=== PATIENT | male | born 1995 | race Hispanic/Latino ===

== ENCOUNTER 2016-03-18 10:59 | Emergency (ER) | payer OTHER ==
[2016-03-18] MEDS ORDERED: CLINDAMYCIN INJ 900MG/6ML VIAL As Ordered ONE (13:16)
[2016-03-18] MEDS ORDERED: LIDOCAINE 2% MDV 20 ML VIAL As Ordered ONE (13:17)
[2016-03-18 13:39] LABS: BASO # 0.2 K/mm3 (0.0-0.2); BASO % 1.4 % (0.0-1.0); EOS # 0.1 K/mm3 (0.0-0.50); EOS % 0.8 % (0.0-3.0); LARGE UNSTAINED CELL # 0.2 K/mm3 (0.0-0.4); LARGE UNSTAINED CELL % 1.4 % (0.0-4.0); LYMPH # 2.3 K/mm3 (1.5-6.5); MEAN CORPUSCULAR HEMOGLOBIN 26.2 pg (27.0-33.0); MEAN CORPUSCULAR HGB CONC 33.7 g/dl (32.0-36.5); MEAN CORPUSCULAR VOLUME 77.8 fl (80.0-96.0); MONO # 0.5 K/mm3 (0.0-0.8); NEUTROPHILS # 9.4 K/mm3 (1.8-7.7); NEUTROPHILS % 75.4 % (36.0-66.0); PLATELET COUNT, AUTOMATED 263 k/mm3 (150-450); RED CELL DISTRIBUTION WIDTH 13.7 % (11.5-14.5); WHITE BLOOD COUNT 12.4 K/mm3 (4.0-10.0)
[2016-03-18 13:42] LABS: ANION GAP 7 MEQ/L (8-16); BLOOD UREA NITROGEN 11 MG/DL (7-18); CALCIUM LEVEL 9.3 MG/DL (8.5-10.1); CARBON DIOXIDE LEVEL 30 MEQ/L (21-32); CHLORIDE LEVEL 101 MEQ/L (98-107); GLOMERULAR FILTRATION RATE > 60.0 (>60); GLUCOSE, FASTING 85 MG/DL (70-105); POTASSIUM SERUM 4.1 MEQ/L (3.5-5.1); SODIUM LEVEL 138 MEQ/L (136-145)
--- NOTE | 2016-03-18 15:27 | EDDOCDS ---
Physician Documentation [facility] Name: Erasto Birch Age: 20 yrs Sex: Male : 1995 Arrival Date: 03/18/2016 Time: 10:59 Bed I4 / M4 Private [facility] Disposition: 03/18/16 15:15 Discharged to Home/Self Care. Impression: Cutaneous abscess of right upper limb, Cellulitis of right upper limb. - Condition is Stable. - Discharge Instructions: Abscess, Cellulitis, Incision and Drainage. - Prescriptions for Clindamycin HCl 300 mg Oral Capsule - take 1 capsule by ORAL route every 6 hours; 40 capsule. - Medication Reconciliation, Local Pharmacy Hours form. - [facility]: [facility] [place]; When: Tomorrow; Reason: Recheck today's complaints, Continuance of care. - Problem is new. - Symptoms have improved. Historical: - Allergies: no known allergies; - Home Meds: 1. none - PMHx: none; - PSHx: none; - Immunization history:: Last tetanus immunization: up to date. - Family history: Not pertinent. - Social history: Smoking status: Patient/guardian denies using No barriers to communication noted, The patient speaks fluent Cameroonian. - : The pt / caregiver states he / she is not on anticoagulants. Home medication list is obtained from the patient. - Exposure Risk Screening:: None identified. Vital Signs: 03/18 11:01 BP 115 / 70; Pulse 84; Resp 18 S; Temp 98.0(O); Pulse Ox 98% on R/A; Weight 61.23 kg / dd6 134.99 lbs (R); Height 5 ft. 6 in. (167.64 cm) (R); 15:23 BP 114 / 68; Pulse 73; Resp 16; Temp 97.8(O); Pulse Ox 98% on R/A; Pain 1/10; kr3 11:01 Body Mass Index 21.79 (61.23 kg, 167.64 cm) dd6 MDM: 12:51 IV Saline Lock ordered. mo1 12:51 -Blood Culture (Adults Only), peripheral from different site, or from device/port/PICC mo1 etc. if present ordered. 12:51 Lidocaine 20 mg/mL (2 %) 10 ml Infiltration once; to bedside ordered. mo1 12:51 Dressing ordered. mo1 12:51 CBC with Diff Ordered. EDMS 12:51 BMP Ordered. EDMS 12:51 CRP Ordered. EDMS 12:51 -Blood Culture Ordered. EDMS 12:51 Wound Culture & GS - Most Extremities Ordered. EDMS 12:52 Clindamycin 900 mg IVPB once over 30 mins; dilute in 50mL of NS or D5W ordered. mo1 12:57 BLOOD CULTURES Ordered. EDMS 13:10 -Blood Culture (Adults Only), peripheral from different site, or from device/port/PICC ar3 etc. if present complete. 14:31 CRP Reviewed. mo1 14:31 BMP Reviewed. mo1 14:32 CBC with Diff Reviewed. mo1 Administered Medications: 13:24 Drug: Clindamycin 900 mg Route: IVPB; Infused Over: 30 mins; Site: left antecubital; jmk 14:21 Follow up: IV Status: Completed infusion jmk 15:19 Drug: Lidocaine 10 ml [lidocaine 20 mg/mL (2 %) injection solution (10 mL)] {Note: by lizzie LIN.} Route: Infiltration; Signatures: Dispatcher [employer] EDLti Simons RN RN jmk Scott, Debra, RN RN dls Robie, Kathleen, RN RN kr3 Rabon, Alicia, PHYLLIS MASONRY INSTALLER chad3 Mauro Fernandez PA PA mo1 MTDD
--- NOTE | 2016-03-18 15:27 | EDDOCDS ---
Nurse's Notes [facility] Name: Erasto Birch Age: 20 yrs Sex: Male : 1995 Arrival Date: 03/18/2016 Time: 10:59 Bed I4 / M4 [facility] Diagnosis: Cutaneous abscess of right upper limb;Cellulitis of right upper limb Presentation: 03/18 11:07 Presenting complaint: Patient states: Pt presents with redness swelling and yellow dls drainage right forearm pt is unsure if he got bit by something. Compartment Syndrome Evaluation: No compartment is involved. There are no signs of compartment syndrome. Adult Sepsis Screening: The patient does not have new or worsening altered mentation. Patient's respiratory rate is less than 22. Systolic blood pressure is greater than 100. Patient has a qSOFA score of 0- Negative Sepsis Screen. Suicide/Homicide risk assessment- the patient denies having any suicidal and/or homicidal ideations and does not present with any other emotional, behavioral or mental health complaints. 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 Transition of care: patient was not received from another setting of care. 11:07 Acuity: MARIN Level 3 dls 11:07 Method Of Arrival: Walkin/Carried/Asstd dls Triage Assessment: 11:09 General: Appears in no apparent distress, slender, well developed, well nourished, well dls groomed, Behavior is cooperative. Pain: Pain currently is 4 out of 10 on a pain scale. HIV screening NA for this visit Offered previously. 15:25 Bite Description: Bite sustained to dorsal aspect of right forearm by an unknown kr3 animal, Animal Information: Vaccine status: is not applicable. Historical: - Allergies: no known allergies; - Home Meds: 1. none - PMHx: none; - PSHx: none; - Immunization history:: Last tetanus immunization: up to date. - Family history: Not pertinent. - Social history: Smoking status: Patient/guardian denies using No barriers to communication noted, The patient speaks fluent Georgian. - : The pt / caregiver states he / she is not on anticoagulants. Home medication list is obtained from the patient. - Exposure Risk Screening:: None identified. Screenin:25 Screening information is obtained from the patient. Fall risk: No risks identified. dukek Assistance ADL's: requires no assistance with activities of daily living. Abuse/DV Screen: The patient / caregiver reports he/she is: not in a situation that causes fear, pain or injury. Nutritional screening: No deficits noted. Advance Directives: Currently, there is no health care proxy. There is no active DNR order. There is no living will. There is no Power of Leather Staker. Advance directive information has not previously been placed in an [facility] medical record. home support is adequate. Assessment: 13:25 General: Appears in no apparent distress, NAD very casual presentation. right arm with jmk 4" area of redness distal to antecubital space. pea size area of crusty drainage. red streak x 2 extends to axillae.. Derm: Skin see note. 15:24 Reassessment: Patient appears in no apparent distress at this time. Pain: Location: kr3 right forearm Pain currently is 1 out of 10 on a pain scale. Neurological: Level of Consciousness is awake, alert. Respiratory: Respiratory effort is even, unlabored. Vital Signs: 11:01 BP 115 / 70; Pulse 84; Resp 18 S; Temp 98.0(O); Pulse Ox 98% on R/A; Weight 61.23 kg dd6 (R); Height 5 ft. 6 in. (167.64 cm) (R); 15:23 BP 114 / 68; Pulse 73; Resp 16; Temp 97.8(O); Pulse Ox 98% on R/A; Pain 1/10; kr3 11:01 Body Mass Index 21.79 (61.23 kg, 167.64 cm) dd6 Vitals: 11:01 Log In Time: March 18, 2016 at 11:00. dd6 ED Course: 11:00 Patient visited by Darrion Kruse PCA. dd6 11:00 Patient moved to Waiting dd6 11:01 [facility], Hussein Bourgeois is Private Physician. dd6 11:02 Patient moved to Pre RCE dd6 11:08 Triage Initiated dls 12:22 Patient moved to Triage 2 ar3 12:30 Mauro Fernandez PA is PHCP. mo1 12:30 Yoni Saunders MD is Attending Physician. mo1 12:51 Patient visited by Mauro Fernandez PA. mo1 12:52 Patient moved to I4 / M4 ar3 12:52 Wound Culture & GS - Most Extremities Sent. ar3 13:25 The patient / caregiver is instructed regarding the plan of care and ED course. jmk 13:25 Inserted saline lock: 20 gauge in left antecubital area. jmk 13:31 Patient visited by Lit Guerra,NILES. jmk 15:15 [facility], Hussein Bourgeois is Referral Physician. mo1 15:25 Discontinued lock intact, bleeding controlled, pressure dressing applied, No kr3 redness/swelling at site. No procedures done that require assistance. Administered Medications: 13:24 Drug: Clindamycin 900 mg Route: IVPB; Infused Over: 30 mins; Site: left antecubital; jmk 14:21 Follow up: IV Status: Completed infusion jmk 15:19 Drug: Lidocaine 10 ml [lidocaine 20 mg/mL (2 %) injection solution (10 mL)] {Note: by lizzie WELLS} Route: Infiltration; Order Results: Lab Order: CBC with Diff; SPEC'M 03/18/16 13:10 Test: WHITE BLOOD COUNT; Value: 12.4; Range: 4.0-10.0; Abnormal: Above high normal; Units: K/mm3; Status: F Test: RED BLOOD COUNT; Value: 5.94; Range: 4.30-6.10; Units: M/mm3; Status: F Test: HEMOGLOBIN; Value: 15.6; Range: 14.0-18.0; Units: g/dl; Status: F Test: HEMATOCRIT; Value: 46.2; Range: 42.0-52.0; Units: %; Status: F Test: MEAN CORPUSCULAR VOLUME; Value: 77.8; Range: 80.0-96.0; Abnormal: Below low normal; Units: fl; Status: F Test: MEAN CORPUSCULAR HEMOGLOBIN; Value: 26.2; Range: 27.0-33.0; Abnormal: Below low normal; Units: pg; Status: F Test: MEAN CORPUSCULAR HGB CONC; Value: 33.7; Range: 32.0-36.5; Units: g/dl; Status: F Test: RED CELL DISTRIBUTION WIDTH; Value: 13.7; Range: 11.5-14.5; Units: %; Status: F Test: PLATELET COUNT, AUTOMATED; Value: 263; Range: 150-450; Units: k/mm3; Status: F Test: NEUTROPHILS %; Value: 75.4; Range: 36.0-66.0; Abnormal: Above high normal; Units: %; Status: F Test: LYMPH %; Value: 17.0; Range: 24.0-44.0; Abnormal: Below low normal; Units: %; Status: F Test: MONO %; Value: 4.0; Range: 0.0-5.0; Units: %; Status: F Test: EOS %; Value: 0.8; Range: 0.0-3.0; Units: %; Status: F Test: BASO %; Value: 1.4; Range: 0.0-1.0; Abnormal: Above high normal; Units: %; Status: F Test: LARGE UNSTAINED CELL %; Value: 1.4; Range: 0.0-4.0; Units: %; Status: F Test: NEUTROPHILS #; Value: 9.4; Range: 1.8-7.7; Abnormal: Above high normal; Units: K/mm3; Status: F Test: LYMPH #; Value: 2.3; Range: 1.5-6.5; Units: K/mm3; Status: F Test: MONO #; Value: 0.5; Range: 0.0-0.8; Units: K/mm3; Status: F Test: EOS #; Value: 0.1; Range: 0.0-0.50; Units: K/mm3; Status: F Test: BASO #; Value: 0.2; Range: 0.0-0.2; Units: K/mm3; Status: F Test: LARGE UNSTAINED CELL #; Value: 0.2; Range: 0.0-0.4; Units: K/mm3; Status: F Lab Order: [facility]; SPEC'M 03/18/16 13:10 Test: GLUCOSE, FASTING; Value: 85; Range: 70-105; Units: MG/DL; Status: F Test: BLOOD UREA NITROGEN; Value: 11; Range: 7-18; Units: MG/DL; Status: F Test: CREATININE FOR GFR; Value: 0.90; Range: 0.70-1.30; Units: MG/DL; Status: F Test: GLOMERULAR FILTRATION RATE; Value: > 60.0; Range: >60; Status: F Test: SODIUM LEVEL; Value: 138; Range: 136-145; Units: MEQ/L; Status: F Test: POTASSIUM SERUM; Value: 4.1; Range: 3.5-5.1; Units: MEQ/L; Status: F Test: CHLORIDE LEVEL; Value: 101; Range: 98-107; Units: MEQ/L; Status: F Test: CARBON DIOXIDE LEVEL; Value: 30; Range: 21-32; Units: MEQ/L; Status: F Test: ANION GAP; Value: 7; Range: 8-16; Abnormal: Below low normal; Units: MEQ/L; Status: F Test: CALCIUM LEVEL; Value: 9.3; Range: 8.5-10.1; Units: MG/DL; Status: F Test Note: ; Units are mL/min/1.73 m2 Chronic Kidney Disease Staging per NKF: Stage I & II GFR >=60 Normal to Mildly Decreased Stage III GFR 30-59 Moderately Decreased Stage IV GFR 15-29 Severely Decreased Stage V GFR <15 Very Little GFR Left ESRD GFR <15 on TOWN CLERK Lab Order: CRP; SPEC'M 03/18/16 13:10 Test: C REACTIVE PROTEIN QUANTITATIV; Value: 0.49; Range: 0.00-0.30; Abnormal: Above high normal; Units: MG/DL; Status: F Lab Order: Wound Culture & GS - Most Extremities; SPEC'M 03/18/16 13:10 Test: GRAM STAIN; Value: GRAM STAIN RESULT; Status: F Test: GRAM STAIN; Value: NO CELLS SEEN; Status: F Test: GRAM STAIN; Value: NO ORGANISMS SEEN; Status: F Outcome: 15:15 Discharge ordered by Provider. mo1 15:24 Discharge Assessment: patient administered narcotics - no. The following High Risk kr3 Discharge criteria are identified: None. Discharged to home ambulatory, with friend. Condition: stable. Discharge instructions given to patient, Instructed on discharge instructions, follow up and referral plans. medication usage, wound care, Demonstrated understanding of instructions, medications, Pt was receptive of discharge instructions/ teaching. Prescriptions given X 1. No special radiology studies were completed. Property sent home with patient. 15:26 Patient left the ED. kr3 Signatures: Lit GuerraRN RN Deb Joyner RN RN Alta FossRN RN kr3 Darrion Kruse, BEDSPREAD CUTTER BEDSPREAD CUTTER dd6 Meka Ambriz, BEDSPREAD CUTTER BEDSPREAD CUTTER ar3 Mauro Fernandez, RILEY LIN mo1 MTDD
--- NOTE | 2016-03-20 16:27 | EDDOCDS ---
Physician Documentation [facility] Name: Erasto Birch Age: 20 yrs Sex: Male : 1995 Arrival Date: 03/18/2016 Time: 10:59 Bed I4 / M4 [facility] Disposition: 03/18/16 15:15 Discharged to Home/Self Care. Impression: Cutaneous abscess of right upper limb, Cellulitis of right upper limb. - Condition is Stable. - Discharge Instructions: Abscess, Cellulitis, Incision and Drainage. - Prescriptions for Clindamycin HCl 300 mg Oral Capsule - take 1 capsule by ORAL route every 6 hours; 40 capsule. - Medication Reconciliation, Local Pharmacy Hours form. - Follow up: [facility] [place]; When: Tomorrow; Reason: Recheck today's complaints, Continuance of care. - Problem is new. - Symptoms have improved. Historical: - Allergies: no known allergies; - Home Meds: 1. none - PMHx: none; - PSHx: none; - Immunization history:: Last tetanus immunization: up to date. - Family history: Not pertinent. - Social history: Smoking status: Patient/guardian denies using No barriers to communication noted, The patient speaks fluent Danish. - : The pt / caregiver states he / she is not on anticoagulants. Home medication list is obtained from the patient. - Exposure Risk Screening:: None identified. Vital Signs: 03/18 11:01 BP 115 / 70; Pulse 84; Resp 18 S; Temp 98.0(O); Pulse Ox 98% on R/A; Weight 61.23 kg / dd6 134.99 lbs (R); Height 5 ft. 6 in. (167.64 cm) (R); 15:23 BP 114 / 68; Pulse 73; Resp 16; Temp 97.8(O); Pulse Ox 98% on R/A; Pain 1/10; kr3 11:01 Body Mass Index 21.79 (61.23 kg, 167.64 cm) dd6 MDM: 12:51 IV Saline Lock ordered. mo1 12:51 -Blood Culture (Adults Only), peripheral from different site, or from device/port/PICC mo1 etc. if present ordered. 12:51 Lidocaine 20 mg/mL (2 %) 10 ml Infiltration once; to bedside ordered. mo1 12:51 Dressing ordered. mo1 12:51 CBC with Diff Ordered. EDMS 12:51 BMP Ordered. EDMS 12:51 CRP Ordered. EDMS 12:51 -Blood Culture Ordered. EDMS 12:51 Wound Culture & GS - Most Extremities Ordered. EDMS 12:52 Clindamycin 900 mg IVPB once over 30 mins; dilute in 50mL of NS or D5W ordered. mo1 12:57 BLOOD CULTURES Ordered. EDMS 13:10 -Blood Culture (Adults Only), peripheral from different site, or from device/port/PICC ar3 etc. if present complete. 14:31 CRP Reviewed. mo1 14:31 BMP Reviewed. mo1 14:32 CBC with Diff Reviewed. mo1 22:10 T-Sheet-- Draft Copy was scanned into [employer] and attached to record. klr Administered Medications: 13:24 Drug: Clindamycin 900 mg Route: IVPB; Infused Over: 30 mins; Site: left antecubital; jmk 14:21 Follow up: IV Status: Completed infusion k 15:19 Drug: Lidocaine 10 ml [lidocaine 20 mg/mL (2 %) injection solution (10 mL)] {Note: by lizzie LIN.} Route: Infiltration; Signatures: Dispatcher [employer]Host EDLit Simons RN RN jmk Scott, Debra, RN RN dls Robie, Kathleen, RN RN kr3 Rabon, Alicia, SERVICE ORDER DISPATCHER CHIEF SERVICE ORDER DISPATCHER CHIEF ar3 Mauro Fernandez PA PA moAngie Paris kljewels The chart was reviewed and I authenticate all verbal orders and agree with the evaluation and treatment provided.Attachments: 22:10 T-Sheet-- Draft Copy klr Chart Complete MTDD
--- NOTE | 2016-03-20 16:27 | EDDOCDS ---
Physician Documentation [facility] Name: Erasto Birch Age: 20 yrs Sex: Male : 1995 Arrival Date: 03/18/2016 Time: 10:59 Bed I4 / M4 [facility] Disposition: 03/18/16 15:15 Discharged to Home/Self Care. Impression: Cutaneous abscess of right upper limb, Cellulitis of right upper limb. - Condition is Stable. - Discharge Instructions: Abscess, Cellulitis, Incision and Drainage. - Prescriptions for Clindamycin HCl 300 mg Oral Capsule - take 1 capsule by ORAL route every 6 hours; 40 capsule. - Medication Reconciliation, Local Pharmacy Hours form. - Follow up: [facility] [place]; When: Tomorrow; Reason: Recheck today's complaints, Continuance of care. - Problem is new. - Symptoms have improved. Historical: - Allergies: no known allergies; - Home Meds: 1. none - PMHx: none; - PSHx: none; - Immunization history:: Last tetanus immunization: up to date. - Family history: Not pertinent. - Social history: Smoking status: Patient/guardian denies using No barriers to communication noted, The patient speaks fluent South African. - : The pt / caregiver states he / she is not on anticoagulants. Home medication list is obtained from the patient. - Exposure Risk Screening:: None identified. Vital Signs: 03/18 11:01 BP 115 / 70; Pulse 84; Resp 18 S; Temp 98.0(O); Pulse Ox 98% on R/A; Weight 61.23 kg / dd6 134.99 lbs (R); Height 5 ft. 6 in. (167.64 cm) (R); 15:23 BP 114 / 68; Pulse 73; Resp 16; Temp 97.8(O); Pulse Ox 98% on R/A; Pain 1/10; kr3 11:01 Body Mass Index 21.79 (61.23 kg, 167.64 cm) dd6 MDM: 12:51 IV Saline Lock ordered. mo1 12:51 -Blood Culture (Adults Only), peripheral from different site, or from device/port/PICC mo1 etc. if present ordered. 12:51 Lidocaine 20 mg/mL (2 %) 10 ml Infiltration once; to bedside ordered. mo1 12:51 Dressing ordered. mo1 12:51 CBC with Diff Ordered. EDMS 12:51 BMP Ordered. EDMS 12:51 CRP Ordered. EDMS 12:51 -Blood Culture Ordered. EDMS 12:51 Wound Culture & GS - Most Extremities Ordered. EDMS 12:52 Clindamycin 900 mg IVPB once over 30 mins; dilute in 50mL of NS or D5W ordered. mo1 12:57 BLOOD CULTURES Ordered. EDMS 13:10 -Blood Culture (Adults Only), peripheral from different site, or from device/port/PICC ar3 etc. if present complete. 14:31 CRP Reviewed. mo1 14:31 BMP Reviewed. mo1 14:32 CBC with Diff Reviewed. mo1 22:10 T-Sheet-- Draft Copy was scanned into [employer] and attached to record. klr Administered Medications: 13:24 Drug: Clindamycin 900 mg Route: IVPB; Infused Over: 30 mins; Site: left antecubital; jmk 14:21 Follow up: IV Status: Completed infusion k 15:19 Drug: Lidocaine 10 ml [lidocaine 20 mg/mL (2 %) injection solution (10 mL)] {Note: by lizzie LIN.} Route: Infiltration; Signatures: Dispatcher [employer] EDLit Simons RN RN jmk Scott, Debra, RN RN dls Robie, Kathleen, RN RN kr3 Rabon, Alicia, PROFESSOR OF LATIN AMERICAN STUDIES PROFESSOR OF [employer] STUDIES ar3 Mauro Fernandez PA PA moAngie Paris kljewels The chart was reviewed and I authenticate all verbal orders and agree with the evaluation and treatment provided.Attachments: 22:10 T-Sheet-- Draft Copy klr Chart Complete MTDD
--- NOTE | 2016-03-20 16:27 | EDDOCDS ---
Nurse's Notes [facility] Name: Erasto Birch Age: 20 yrs Sex: Male : 1995 Arrival Date: 03/18/2016 Time: 10:59 Bed I4 / M4 [facility] Diagnosis: Cutaneous abscess of right upper limb;Cellulitis of right upper limb Presentation: 03/18 11:07 Presenting complaint: Patient states: Pt presents with redness swelling and yellow dls drainage right forearm pt is unsure if he got bit by something. Compartment Syndrome Evaluation: No compartment is involved. There are no signs of compartment syndrome. Adult Sepsis Screening: The patient does not have new or worsening altered mentation. Patient's respiratory rate is less than 22. Systolic blood pressure is greater than 100. Patient has a qSOFA score of 0- Negative Sepsis Screen. Suicide/Homicide risk assessment- the patient denies having any suicidal and/or homicidal ideations and does not present with any other emotional, behavioral or mental health complaints. 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 Transition of care: patient was not received from another setting of care. 11:07 Acuity: MARIN Level 3 dls 11:07 Method Of Arrival: Walkin/Carried/Asstd dls Triage Assessment: 11:09 General: Appears in no apparent distress, slender, well developed, well nourished, well dls groomed, Behavior is cooperative. Pain: Pain currently is 4 out of 10 on a pain scale. HIV screening NA for this visit Offered previously. 15:25 Bite Description: Bite sustained to dorsal aspect of right forearm by an unknown kr3 animal, Animal Information: Vaccine status: is not applicable. Historical: - Allergies: no known allergies; - Home Meds: 1. none - PMHx: none; - PSHx: none; - Immunization history:: Last tetanus immunization: up to date. - Family history: Not pertinent. - Social history: Smoking status: Patient/guardian denies using No barriers to communication noted, The patient speaks fluent Cape Verdean. - : The pt / caregiver states he / she is not on anticoagulants. Home medication list is obtained from the patient. - Exposure Risk Screening:: None identified. Screenin:25 Screening information is obtained from the patient. Fall risk: No risks identified. dukek Assistance ADL's: requires no assistance with activities of daily living. Abuse/DV Screen: The patient / caregiver reports he/she is: not in a situation that causes fear, pain or injury. Nutritional screening: No deficits noted. Advance Directives: Currently, there is no health care proxy. There is no active DNR order. There is no living will. There is no Power of Amusement Ride Operator. Advance directive information has not previously been placed in an [facility] medical record. home support is adequate. Assessment: 13:25 General: Appears in no apparent distress, NAD very casual presentation. right arm with jmk 4" area of redness distal to antecubital space. pea size area of crusty drainage. red streak x 2 extends to axillae.. Derm: Skin see note. 15:24 Reassessment: Patient appears in no apparent distress at this time. Pain: Location: kr3 right forearm Pain currently is 1 out of 10 on a pain scale. Neurological: Level of Consciousness is awake, alert. Respiratory: Respiratory effort is even, unlabored. Vital Signs: 11:01 BP 115 / 70; Pulse 84; Resp 18 S; Temp 98.0(O); Pulse Ox 98% on R/A; Weight 61.23 kg dd6 (R); Height 5 ft. 6 in. (167.64 cm) (R); 15:23 BP 114 / 68; Pulse 73; Resp 16; Temp 97.8(O); Pulse Ox 98% on R/A; Pain 1/10; kr3 11:01 Body Mass Index 21.79 (61.23 kg, 167.64 cm) dd6 Vitals: 11:01 Log In Time: March 18, 2016 at 11:00. dd6 ED Course: 11:00 Patient visited by Darrion Kruse PCA. dd6 11:00 Patient moved to Waiting dd6 11:01 [facility], Hussein Bourgeois is Private Physician. dd6 11:02 Patient moved to Pre RCE dd6 11:08 Triage Initiated dls 12:22 Patient moved to Triage 2 ar3 12:30 Mauro Fernandez PA is PHCP. mo1 12:30 Yoni Saunders MD is Attending Physician. mo1 12:51 Patient visited by Mauro Fernandez PA. mo1 12:52 Patient moved to I4 / M4 ar3 12:52 Wound Culture & GS - Most Extremities Sent. ar3 13:25 The patient / caregiver is instructed regarding the plan of care and ED course. jmk 13:25 Inserted saline lock: 20 gauge in left antecubital area. jmk 13:31 Patient visited by Lit Guerra,NILES. jmk 15:15 [facility], Hussein Bourgeois is Referral Physician. mo1 15:25 Discontinued lock intact, bleeding controlled, pressure dressing applied, No kr3 redness/swelling at site. No procedures done that require assistance. 22:10 T-Sheet-- Draft Copy was scanned into [employer] and attached to record. klr Administered Medications: 13:24 Drug: Clindamycin 900 mg Route: IVPB; Infused Over: 30 mins; Site: left antecubital; dukek 14:21 Follow up: IV Status: Completed infusion jmk 15:19 Drug: Lidocaine 10 ml [lidocaine 20 mg/mL (2 %) injection solution (10 mL)] {Note: by lizzie WELLS} Route: Infiltration; Order Results: Lab Order: CBC with Diff; SPEC'M 03/18/16 13:10 Test: WHITE BLOOD COUNT; Value: 12.4; Range: 4.0-10.0; Abnormal: Above high normal; Units: K/mm3; Status: F Test: RED BLOOD COUNT; Value: 5.94; Range: 4.30-6.10; Units: M/mm3; Status: F Test: HEMOGLOBIN; Value: 15.6; Range: 14.0-18.0; Units: g/dl; Status: F Test: HEMATOCRIT; Value: 46.2; Range: 42.0-52.0; Units: %; Status: F Test: MEAN CORPUSCULAR VOLUME; Value: 77.8; Range: 80.0-96.0; Abnormal: Below low normal; Units: fl; Status: F Test: MEAN CORPUSCULAR HEMOGLOBIN; Value: 26.2; Range: 27.0-33.0; Abnormal: Below low normal; Units: pg; Status: F Test: MEAN CORPUSCULAR HGB CONC; Value: 33.7; Range: 32.0-36.5; Units: g/dl; Status: F Test: RED CELL DISTRIBUTION WIDTH; Value: 13.7; Range: 11.5-14.5; Units: %; Status: F Test: PLATELET COUNT, AUTOMATED; Value: 263; Range: 150-450; Units: k/mm3; Status: F Test: NEUTROPHILS %; Value: 75.4; Range: 36.0-66.0; Abnormal: Above high normal; Units: %; Status: F Test: LYMPH %; Value: 17.0; Range: 24.0-44.0; Abnormal: Below low normal; Units: %; Status: F Test: MONO %; Value: 4.0; Range: 0.0-5.0; Units: %; Status: F Test: EOS %; Value: 0.8; Range: 0.0-3.0; Units: %; Status: F Test: BASO %; Value: 1.4; Range: 0.0-1.0; Abnormal: Above high normal; Units: %; Status: F Test: LARGE UNSTAINED CELL %; Value: 1.4; Range: 0.0-4.0; Units: %; Status: F Test: NEUTROPHILS #; Value: 9.4; Range: 1.8-7.7; Abnormal: Above high normal; Units: K/mm3; Status: F Test: LYMPH #; Value: 2.3; Range: 1.5-6.5; Units: K/mm3; Status: F Test: MONO #; Value: 0.5; Range: 0.0-0.8; Units: K/mm3; Status: F Test: EOS #; Value: 0.1; Range: 0.0-0.50; Units: K/mm3; Status: F Test: BASO #; Value: 0.2; Range: 0.0-0.2; Units: K/mm3; Status: F Test: LARGE UNSTAINED CELL #; Value: 0.2; Range: 0.0-0.4; Units: K/mm3; Status: F Lab Order: [facility]; SPEC'M 03/18/16 13:10 Test: GLUCOSE, FASTING; Value: 85; Range: 70-105; Units: MG/DL; Status: F Test: BLOOD UREA NITROGEN; Value: 11; Range: 7-18; Units: MG/DL; Status: F Test: CREATININE FOR GFR; Value: 0.90; Range: 0.70-1.30; Units: MG/DL; Status: F Test: GLOMERULAR FILTRATION RATE; Value: > 60.0; Range: >60; Status: F Test: SODIUM LEVEL; Value: 138; Range: 136-145; Units: MEQ/L; Status: F Test: POTASSIUM SERUM; Value: 4.1; Range: 3.5-5.1; Units: MEQ/L; Status: F Test: CHLORIDE LEVEL; Value: 101; Range: 98-107; Units: MEQ/L; Status: F Test: CARBON DIOXIDE LEVEL; Value: 30; Range: 21-32; Units: MEQ/L; Status: F Test: ANION GAP; Value: 7; Range: 8-16; Abnormal: Below low normal; Units: MEQ/L; Status: F Test: CALCIUM LEVEL; Value: 9.3; Range: 8.5-10.1; Units: MG/DL; Status: F Test Note: ; Units are mL/min/1.73 m2 Chronic Kidney Disease Staging per NKF: Stage I & II GFR >=60 Normal to Mildly Decreased Stage III GFR 30-59 Moderately Decreased Stage IV GFR 15-29 Severely Decreased Stage V GFR <15 Very Little GFR Left ESRD GFR <15 on STOCK WETTER Lab Order: CRP; SPEC'M 03/18/16 13:10 Test: C REACTIVE PROTEIN QUANTITATIV; Value: 0.49; Range: 0.00-0.30; Abnormal: Above high normal; Units: MG/DL; Status: F Lab Order: -Blood Culture; SPEC'M 03/18/16 13:10 Test: BLOOD CULTURE; Value: No growth after 24 hours . All specimens observed; Status: F Test: BLOOD CULTURE; Value: for 5 days. Results final at that time.; Status: F Test: BLOOD CULTURE; Value: No Growth after 48 hours. All Specimens observed; Status: F Test: BLOOD CULTURE; Value: for 7 days. Results final at that time.; Status: F Lab Order: Wound Culture & GS - Most Extremities; SPEC'M 03/18/16 13:10 Test: GRAM STAIN; Value: GRAM STAIN RESULT; Status: F Test: GRAM STAIN; Value: NO CELLS SEEN; Status: F Test: GRAM STAIN; Value: NO ORGANISMS SEEN; Status: F Test: WOUND CULTURE; Value: <EXTERNAL COMMENT eCWMed> FULL REPORT IN LAB NOTES (eCW and Medent).; Status: F Test: WOUND CULTURE; Value: ORGANISM 1: STAPH.AUREUS METHICILLIN RESIS; Status: F Test: WOUND CULTURE; Value: STAPH.AUREUS METHICILLIN RESIS; Status: F Test: WOUND CULTURE; Value: QUANTITY OF GROWTH HEAVY; Status: F Test: WOUND CULTURE; Value: GRAM POS SENSI - VITEK 67; Status: F Test: WOUND CULTURE; Value: Method: VIT2; Status: F Test: WOUND CULTURE; Value: TETRACYCLINE <=1 S; Status: F Test: WOUND CULTURE; Value: PENICILLIN G >=0.5 R; Status: F Test: WOUND CULTURE; Value: TRIMETHOPRIM/SULFAMETHOXAZOLE <=10 S; Status: F Test: WOUND CULTURE; Value: ERYTHROMYCIN >=8 R; Status: F Test: WOUND CULTURE; Value: GENTAMICIN <=0.5 S; Status: F Test: WOUND CULTURE; Value: CLINDAMYCIN <=0.25 S; Status: F Test: WOUND CULTURE; Value: OXACILLIN >=4 R; Status: F Test: WOUND CULTURE; Value: VANCOMYCIN <=0.5 S; Status: F Test: WOUND CULTURE; Value: LINEZOLID (ZYVOX) 2 S; Status: F Lab Order: BLOOD CULTURES; SPEC'M 03/18/16 13:10 Test: BLOOD CULTURE; Value: No growth after 24 hours . All specimens observed; Status: F Test: BLOOD CULTURE; Value: for 5 days. Results final at that time.; Status: F Test: BLOOD CULTURE; Value: No Growth after 48 hours. All Specimens observed; Status: F Test: BLOOD CULTURE; Value: for 7 days. Results final at that time.; Status: F Outcome: 15:15 Discharge ordered by Provider. mo1 15:24 Discharge Assessment: patient administered narcotics - no. The following High Risk kr3 Discharge criteria are identified: None. Discharged to home ambulatory, with friend. Condition: stable. Discharge instructions given to patient, Instructed on discharge instructions, follow up and referral plans. medication usage, wound care, Demonstrated understanding of instructions, medications, Pt was receptive of discharge instructions/ teaching. Prescriptions given X 1. No special radiology studies were completed. Property sent home with patient. 15:26 Patient left the ED. kr3 Signatures: Lit GuerraRN RN Deb Joyner RN RN dls Alta Ramirez,NILES RN kr3 Uriah, Darrion, LABORATORY TECH LABORATORY TECH dd6 Meka Ambriz, LABORATORY TECH LABORATORY TECH ar3 Mauro Fernandez PA PA mo1 Angie Cook Chart Complete MTDD
--- NOTE | 2016-03-20 16:36 | EDDOCDS ---
Nurse's Notes [facility] Name: Erasto Birch Age: 20 yrs Sex: Male : 1995 Arrival Date: 03/18/2016 Time: 10:59 Bed I4 / M4 [facility] Diagnosis: Cutaneous abscess of right upper limb;Cellulitis of right upper limb Presentation: 03/18 11:07 Presenting complaint: Patient states: Pt presents with redness swelling and yellow dls drainage right forearm pt is unsure if he got bit by something. Compartment Syndrome Evaluation: No compartment is involved. There are no signs of compartment syndrome. Adult Sepsis Screening: The patient does not have new or worsening altered mentation. Patient's respiratory rate is less than 22. Systolic blood pressure is greater than 100. Patient has a qSOFA score of 0- Negative Sepsis Screen. Suicide/Homicide risk assessment- the patient denies having any suicidal and/or homicidal ideations and does not present with any other emotional, behavioral or mental health complaints. 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 11:07 Acuity: MARIN Level 3 dls 11:07 Method Of Arrival: Walkin/Carried/Asstd dls Triage Assessment: 11:09 General: Appears in no apparent distress, slender, well developed, well nourished, well dls groomed, Behavior is cooperative. Pain: Pain currently is 4 out of 10 on a pain scale. HIV screening NA for this visit Offered previously. 15:25 Bite Description: Bite sustained to dorsal aspect of right forearm by an unknown kr3 animal, Animal Information: Vaccine status: is not applicable. Historical: - Allergies: no known allergies; - Home Meds: 1. none - PMHx: none; - PSHx: none; - Immunization history:: Last tetanus immunization: up to date. - Family history: Not pertinent. - Social history: Smoking status: Patient/guardian denies using No barriers to communication noted, The patient speaks fluent Salvadorean. - : The pt / caregiver states he / she is not on anticoagulants. Home medication list is obtained from the patient. - Exposure Risk Screening:: None identified. Screenin:25 Screening information is obtained from the patient. Fall risk: No risks identified. dukek Assistance ADL's: requires no assistance with activities of daily living. Abuse/DV Screen: The patient / caregiver reports he/she is: not in a situation that causes fear, pain or injury. Nutritional screening: No deficits noted. Advance Directives: Currently, there is no health care proxy. There is no active DNR order. There is no living will. There is no Power of Health Center Manager. Advance directive information has not previously been placed in an [facility] medical record. home support is adequate. Assessment: 13:25 General: Appears in no apparent distress, NAD very casual presentation. right arm with jmk 4" area of redness distal to antecubital space. pea size area of crusty drainage. red streak x 2 extends to axillae.. Derm: Skin see note. 15:24 Reassessment: Patient appears in no apparent distress at this time. Pain: Location: kr3 right forearm Pain currently is 1 out of 10 on a pain scale. Neurological: Level of Consciousness is awake, alert. Respiratory: Respiratory effort is even, unlabored. Vital Signs: 11:01 BP 115 / 70; Pulse 84; Resp 18 S; Temp 98.0(O); Pulse Ox 98% on R/A; Weight 61.23 kg dd6 (R); Height 5 ft. 6 in. (167.64 cm) (R); 15:23 BP 114 / 68; Pulse 73; Resp 16; Temp 97.8(O); Pulse Ox 98% on R/A; Pain 1/10; kr3 11:01 Body Mass Index 21.79 (61.23 kg, 167.64 cm) dd6 Vitals: 11:01 Log In Time: March 18, 2016 at 11:00. dd6 ED Course: 11:00 Patient visited by Darrion Kruse PCA. dd6 11:00 Patient moved to Waiting dd6 11:01 [facility], Hussein Bourgeois is Private Physician. dd6 11:02 Patient moved to Pre RCE dd6 11:08 Triage Initiated dls 12:22 Patient moved to Triage 2 ar3 12:30 Mauro Fernandez PA is PHCP. mo1 12:30 Yoni Saunders MD is Attending Physician. mo1 12:51 Patient visited by Mauro Fernandez PA. mo1 12:52 Patient moved to I4 / M4 ar3 12:52 Wound Culture & GS - Most Extremities Sent. ar3 13:25 The patient / caregiver is instructed regarding the plan of care and ED course. jmk 13:25 Inserted saline lock: 20 gauge in left antecubital area. jmk 13:31 Patient visited by Lit Guerra,NILES. jmk 15:15 [facility], Hussein Bourgeois is Referral Physician. mo1 15:25 Discontinued lock intact, bleeding controlled, pressure dressing applied, No kr3 redness/swelling at site. No procedures done that require assistance. 22:10 T-Sheet-- Draft Copy was scanned into [employer] and attached to record. klr Administered Medications: 13:24 Drug: Clindamycin 900 mg Route: IVPB; Infused Over: 30 mins; Site: left antecubital; dukek 14:21 Follow up: IV Status: Completed infusion jmk 15:19 Drug: Lidocaine 10 ml [lidocaine 20 mg/mL (2 %) injection solution (10 mL)] {Note: by lizzie WELLS} Route: Infiltration; Order Results: Lab Order: CBC with Diff; SPEC'M 03/18/16 13:10 Test: WHITE BLOOD COUNT; Value: 12.4; Range: 4.0-10.0; Abnormal: Above high normal; Units: K/mm3; Status: F Test: RED BLOOD COUNT; Value: 5.94; Range: 4.30-6.10; Units: M/mm3; Status: F Test: HEMOGLOBIN; Value: 15.6; Range: 14.0-18.0; Units: g/dl; Status: F Test: HEMATOCRIT; Value: 46.2; Range: 42.0-52.0; Units: %; Status: F Test: MEAN CORPUSCULAR VOLUME; Value: 77.8; Range: 80.0-96.0; Abnormal: Below low normal; Units: fl; Status: F Test: MEAN CORPUSCULAR HEMOGLOBIN; Value: 26.2; Range: 27.0-33.0; Abnormal: Below low normal; Units: pg; Status: F Test: MEAN CORPUSCULAR HGB CONC; Value: 33.7; Range: 32.0-36.5; Units: g/dl; Status: F Test: RED CELL DISTRIBUTION WIDTH; Value: 13.7; Range: 11.5-14.5; Units: %; Status: F Test: PLATELET COUNT, AUTOMATED; Value: 263; Range: 150-450; Units: k/mm3; Status: F Test: NEUTROPHILS %; Value: 75.4; Range: 36.0-66.0; Abnormal: Above high normal; Units: %; Status: F Test: LYMPH %; Value: 17.0; Range: 24.0-44.0; Abnormal: Below low normal; Units: %; Status: F Test: MONO %; Value: 4.0; Range: 0.0-5.0; Units: %; Status: F Test: EOS %; Value: 0.8; Range: 0.0-3.0; Units: %; Status: F Test: BASO %; Value: 1.4; Range: 0.0-1.0; Abnormal: Above high normal; Units: %; Status: F Test: LARGE UNSTAINED CELL %; Value: 1.4; Range: 0.0-4.0; Units: %; Status: F Test: NEUTROPHILS #; Value: 9.4; Range: 1.8-7.7; Abnormal: Above high normal; Units: K/mm3; Status: F Test: LYMPH #; Value: 2.3; Range: 1.5-6.5; Units: K/mm3; Status: F Test: MONO #; Value: 0.5; Range: 0.0-0.8; Units: K/mm3; Status: F Test: EOS #; Value: 0.1; Range: 0.0-0.50; Units: K/mm3; Status: F Test: BASO #; Value: 0.2; Range: 0.0-0.2; Units: K/mm3; Status: F Test: LARGE UNSTAINED CELL #; Value: 0.2; Range: 0.0-0.4; Units: K/mm3; Status: F Lab Order: [facility]; SPEC'M 03/18/16 13:10 Test: GLUCOSE, FASTING; Value: 85; Range: 70-105; Units: MG/DL; Status: F Test: BLOOD UREA NITROGEN; Value: 11; Range: 7-18; Units: MG/DL; Status: F Test: CREATININE FOR GFR; Value: 0.90; Range: 0.70-1.30; Units: MG/DL; Status: F Test: GLOMERULAR FILTRATION RATE; Value: > 60.0; Range: >60; Status: F Test: SODIUM LEVEL; Value: 138; Range: 136-145; Units: MEQ/L; Status: F Test: POTASSIUM SERUM; Value: 4.1; Range: 3.5-5.1; Units: MEQ/L; Status: F Test: CHLORIDE LEVEL; Value: 101; Range: 98-107; Units: MEQ/L; Status: F Test: CARBON DIOXIDE LEVEL; Value: 30; Range: 21-32; Units: MEQ/L; Status: F Test: ANION GAP; Value: 7; Range: 8-16; Abnormal: Below low normal; Units: MEQ/L; Status: F Test: CALCIUM LEVEL; Value: 9.3; Range: 8.5-10.1; Units: MG/DL; Status: F Test Note: ; Units are mL/min/1.73 m2 Chronic Kidney Disease Staging per NKF: Stage I & II GFR >=60 Normal to Mildly Decreased Stage III GFR 30-59 Moderately Decreased Stage IV GFR 15-29 Severely Decreased Stage V GFR <15 Very Little GFR Left ESRD GFR <15 on DESIGN VERIFICATION ENGINEER Lab Order: CRP; SPEC'M 03/18/16 13:10 Test: C REACTIVE PROTEIN QUANTITATIV; Value: 0.49; Range: 0.00-0.30; Abnormal: Above high normal; Units: MG/DL; Status: F Lab Order: -Blood Culture; SPEC'M 03/18/16 13:10 Test: BLOOD CULTURE; Value: No growth after 24 hours . All specimens observed; Status: F Test: BLOOD CULTURE; Value: for 5 days. Results final at that time.; Status: F Test: BLOOD CULTURE; Value: No Growth after 48 hours. All Specimens observed; Status: F Test: BLOOD CULTURE; Value: for 7 days. Results final at that time.; Status: F Lab Order: Wound Culture & GS - Most Extremities; SPEC'M 03/18/16 13:10 Test: GRAM STAIN; Value: GRAM STAIN RESULT; Status: F Test: GRAM STAIN; Value: NO CELLS SEEN; Status: F Test: GRAM STAIN; Value: NO ORGANISMS SEEN; Status: F Test: WOUND CULTURE; Value: <EXTERNAL COMMENT eCWMed> FULL REPORT IN LAB NOTES (eCW and Medent).; Status: F Test: WOUND CULTURE; Value: ORGANISM 1: STAPH.AUREUS METHICILLIN RESIS; Status: F Test: WOUND CULTURE; Value: STAPH.AUREUS METHICILLIN RESIS; Status: F Test: WOUND CULTURE; Value: QUANTITY OF GROWTH HEAVY; Status: F Test: WOUND CULTURE; Value: GRAM POS SENSI - VITEK 67; Status: F Test: WOUND CULTURE; Value: Method: VIT2; Status: F Test: WOUND CULTURE; Value: TETRACYCLINE <=1 S; Status: F Test: WOUND CULTURE; Value: PENICILLIN G >=0.5 R; Status: F Test: WOUND CULTURE; Value: TRIMETHOPRIM/SULFAMETHOXAZOLE <=10 S; Status: F Test: WOUND CULTURE; Value: ERYTHROMYCIN >=8 R; Status: F Test: WOUND CULTURE; Value: GENTAMICIN <=0.5 S; Status: F Test: WOUND CULTURE; Value: CLINDAMYCIN <=0.25 S; Status: F Test: WOUND CULTURE; Value: OXACILLIN >=4 R; Status: F Test: WOUND CULTURE; Value: VANCOMYCIN <=0.5 S; Status: F Test: WOUND CULTURE; Value: LINEZOLID (ZYVOX) 2 S; Status: F Lab Order: BLOOD CULTURES; SPEC'M 03/18/16 13:10 Test: BLOOD CULTURE; Value: No growth after 24 hours . All specimens observed; Status: F Test: BLOOD CULTURE; Value: for 5 days. Results final at that time.; Status: F Test: BLOOD CULTURE; Value: No Growth after 48 hours. All Specimens observed; Status: F Test: BLOOD CULTURE; Value: for 7 days. Results final at that time.; Status: F Outcome: 15:15 Discharge ordered by Provider. mo1 15:24 Discharge Assessment: patient administered narcotics - no. The following High Risk kr3 Discharge criteria are identified: None. Discharged to home ambulatory, with friend. Condition: stable. Discharge instructions given to patient, Instructed on discharge instructions, follow up and referral plans. medication usage, wound care, Demonstrated understanding of instructions, medications, Pt was receptive of discharge instructions/ teaching. Prescriptions given X 1. No special radiology studies were completed. Property sent home with patient. 15:26 Patient left the ED. kr3 Addendum: 03/20/2016 16:35 Narrative: Wound culture results reviewed by Dr Saunders and no changes made. mcp Signatures: Lit Guerra RN RN Heather Julian, Deb Cedeño RN, mcp, RN RN dls Robie, Kathleen, RN RN kr3 Darrion Kruse, MULTI OPERATION FORMING MACHINE SETTER MULTI OPERATION FORMING MACHINE SETTER dd6 Meka Ambriz, MULTI OPERATION FORMING MACHINE SETTER MULTI OPERATION FORMING MACHINE SETTER ar3 Mauro Fernandez PA PA mo1 Angie Cook MTDD
--- NOTE | 2016-03-20 16:36 | EDDOCDS ---
Physician Documentation [facility] Name: Erasto Birch Age: 20 yrs Sex: Male : 1995 Arrival Date: 03/18/2016 Time: 10:59 Bed I4 / M4 [facility] Disposition: 03/18/16 15:15 Discharged to Home/Self Care. Impression: Cutaneous abscess of right upper limb, Cellulitis of right upper limb. - Condition is Stable. - Discharge Instructions: Abscess, Cellulitis, Incision and Drainage. - Prescriptions for Clindamycin HCl 300 mg Oral Capsule - take 1 capsule by ORAL route every 6 hours; 40 capsule. - Medication Reconciliation, Local Pharmacy Hours form. - [facility] [place]; When: Tomorrow; Reason: Recheck today's complaints, Continuance of care. - Problem is new. - Symptoms have improved. Historical: - Allergies: no known allergies; - Home Meds: 1. none - PMHx: none; - PSHx: none; - Immunization history:: Last tetanus immunization: up to date. - Family history: Not pertinent. - Social history: Smoking status: Patient/guardian denies using No barriers to communication noted, The patient speaks fluent Martiniquais. - : The pt / caregiver states he / she is not on anticoagulants. Home medication list is obtained from the patient. - Exposure Risk Screening:: None identified. Vital Signs: 03/18 11:01 BP 115 / 70; Pulse 84; Resp 18 S; Temp 98.0(O); Pulse Ox 98% on R/A; Weight 61.23 kg / dd6 134.99 lbs (R); Height 5 ft. 6 in. (167.64 cm) (R); 15:23 BP 114 / 68; Pulse 73; Resp 16; Temp 97.8(O); Pulse Ox 98% on R/A; Pain 1/10; kr3 11:01 Body Mass Index 21.79 (61.23 kg, 167.64 cm) dd6 MDM: 12:51 IV Saline Lock ordered. mo1 12:51 -Blood Culture (Adults Only), peripheral from different site, or from device/port/PICC mo1 etc. if present ordered. 12:51 Lidocaine 20 mg/mL (2 %) 10 ml Infiltration once; to bedside ordered. mo1 12:51 Dressing ordered. mo1 12:51 CBC with Diff Ordered. EDMS 12:51 BMP Ordered. EDMS 12:51 CRP Ordered. EDMS 12:51 -Blood Culture Ordered. EDMS 12:51 Wound Culture & GS - Most Extremities Ordered. EDMS 12:52 Clindamycin 900 mg IVPB once over 30 mins; dilute in 50mL of NS or D5W ordered. mo1 12:57 BLOOD CULTURES Ordered. EDMS 13:10 -Blood Culture (Adults Only), peripheral from different site, or from device/port/PICC ar3 etc. if present complete. 14:31 CRP Reviewed. mo1 14:31 BMP Reviewed. mo1 14:32 CBC with Diff Reviewed. mo1 22:10 T-Sheet-- Draft Copy was scanned into [employer] and attached to record. klr Administered Medications: 13:24 Drug: Clindamycin 900 mg Route: IVPB; Infused Over: 30 mins; Site: left antecubital; jmk 14:21 Follow up: IV Status: Completed infusion k 15:19 Drug: Lidocaine 10 ml [lidocaine 20 mg/mL (2 %) injection solution (10 mL)] {Note: by lizzie LIN.} Route: Infiltration; Signatures: Dispatcher [employer] EDLit Simons RN RN jmk Scott, Debra, RN RN dls Robie, Kathleen, RN RN kr3 Rabon, Alicia, MANAGER SOLUTION MANAGER SOLUTION ar3 Mauro Fernandez PA PA mo1 Redder, Kathie kljewels The chart was reviewed and I authenticate all verbal orders and agree with the evaluation and treatment provided.Attachments: 22:10 T-Sheet-- Draft Copy klr MTDD
--- NOTE | 2016-03-20 16:36 | EDDOCDS ---
Physician Documentation [facility] Name: Erasto Birch Age: 20 yrs Sex: Male : 1995 Arrival Date: 03/18/2016 Time: 10:59 Bed I4 / M4 [facility] Disposition: 03/18/16 15:15 Discharged to Home/Self Care. Impression: Cutaneous abscess of right upper limb, Cellulitis of right upper limb. - Condition is Stable. - Discharge Instructions: Abscess, Cellulitis, Incision and Drainage. - Prescriptions for Clindamycin HCl 300 mg Oral Capsule - take 1 capsule by ORAL route every 6 hours; 40 capsule. - Medication Reconciliation, Local Pharmacy Hours form. - [facility] [place]; When: Tomorrow; Reason: Recheck today's complaints, Continuance of care. - Problem is new. - Symptoms have improved. Historical: - Allergies: no known allergies; - Home Meds: 1. none - PMHx: none; - PSHx: none; - Immunization history:: Last tetanus immunization: up to date. - Family history: Not pertinent. - Social history: Smoking status: Patient/guardian denies using No barriers to communication noted, The patient speaks fluent Cymraes. - : The pt / caregiver states he / she is not on anticoagulants. Home medication list is obtained from the patient. - Exposure Risk Screening:: None identified. Vital Signs: 03/18 11:01 BP 115 / 70; Pulse 84; Resp 18 S; Temp 98.0(O); Pulse Ox 98% on R/A; Weight 61.23 kg / dd6 134.99 lbs (R); Height 5 ft. 6 in. (167.64 cm) (R); 15:23 BP 114 / 68; Pulse 73; Resp 16; Temp 97.8(O); Pulse Ox 98% on R/A; Pain 1/10; kr3 11:01 Body Mass Index 21.79 (61.23 kg, 167.64 cm) dd6 MDM: 12:51 IV Saline Lock ordered. mo1 12:51 -Blood Culture (Adults Only), peripheral from different site, or from device/port/PICC mo1 etc. if present ordered. 12:51 Lidocaine 20 mg/mL (2 %) 10 ml Infiltration once; to bedside ordered. mo1 12:51 Dressing ordered. mo1 12:51 CBC with Diff Ordered. EDMS 12:51 BMP Ordered. EDMS 12:51 CRP Ordered. EDMS 12:51 -Blood Culture Ordered. EDMS 12:51 Wound Culture & GS - Most Extremities Ordered. EDMS 12:52 Clindamycin 900 mg IVPB once over 30 mins; dilute in 50mL of NS or D5W ordered. mo1 12:57 BLOOD CULTURES Ordered. EDMS 13:10 -Blood Culture (Adults Only), peripheral from different site, or from device/port/PICC ar3 etc. if present complete. 14:31 CRP Reviewed. mo1 14:31 BMP Reviewed. mo1 14:32 CBC with Diff Reviewed. mo1 22:10 T-Sheet-- Draft Copy was scanned into [employer] and attached to record. klr Administered Medications: 13:24 Drug: Clindamycin 900 mg Route: IVPB; Infused Over: 30 mins; Site: left antecubital; jmk 14:21 Follow up: IV Status: Completed infusion k 15:19 Drug: Lidocaine 10 ml [lidocaine 20 mg/mL (2 %) injection solution (10 mL)] {Note: by lizzie LIN.} Route: Infiltration; Signatures: Dispatcher [employer] EDLit Simons RN RN jmk Scott, Debra, RN RN dls Robie, Kathleen, RN RN kr3 Rabon, Alicia, TANNING DRUM OPERATOR TANNING DRUM OPERATOR ar3 Mauro Fernandez PA PA mo1 Redder, Kathie kljewels The chart was reviewed and I authenticate all verbal orders and agree with the evaluation and treatment provided.Attachments: 22:10 T-Sheet-- Draft Copy klr MTDD
--- NOTE | 2016-03-20 17:52 | EDDOCDS ---
Physician Documentation [facility] Name: Erasto Birch Age: 20 yrs Sex: Male : 1995 Arrival Date: 03/18/2016 Time: 10:59 Bed I4 / M4 Private [facility] Disposition: 03/18/16 15:15 Discharged to Home/Self Care. Impression: Cutaneous abscess of right upper limb, Cellulitis of right upper limb. - Condition is Stable. - Discharge Instructions: Abscess, Cellulitis, Incision and Drainage. - Prescriptions for Clindamycin HCl 300 mg Oral Capsule - take 1 capsule by ORAL route every 6 hours; 40 capsule. - Medication Reconciliation, Local Pharmacy Hours form. - [facility] up: [facility] [place]; When: Tomorrow; Reason: Recheck today's complaints, Continuance of care. - Problem is new. - Symptoms have improved. Historical: - Allergies: no known allergies; - Home Meds: 1. none - PMHx: none; - PSHx: none; - Immunization history:: Last tetanus immunization: up to date. - Family history: Not pertinent. - Social history: Smoking status: Patient/guardian denies using No barriers to communication noted, The patient speaks fluent Kosovan. - : The pt / caregiver states he / she is not on anticoagulants. Home medication list is obtained from the patient. - Exposure Risk Screening:: None identified. Vital Signs: 03/18 11:01 BP 115 / 70; Pulse 84; Resp 18 S; Temp 98.0(O); Pulse Ox 98% on R/A; Weight 61.23 kg / dd6 134.99 lbs (R); Height 5 ft. 6 in. (167.64 cm) (R); 15:23 BP 114 / 68; Pulse 73; Resp 16; Temp 97.8(O); Pulse Ox 98% on R/A; Pain 1/10; kr3 11:01 Body Mass Index 21.79 (61.23 kg, 167.64 cm) dd6 MDM: 12:51 IV Saline Lock ordered. mo1 12:51 -Blood Culture (Adults Only), peripheral from different site, or from device/port/PICC mo1 etc. if present ordered. 12:51 Lidocaine 20 mg/mL (2 %) 10 ml Infiltration once; to bedside ordered. mo1 12:51 Dressing ordered. mo1 12:51 CBC with Diff Ordered. EDMS 12:51 BMP Ordered. EDMS 12:51 CRP Ordered. EDMS 12:51 -Blood Culture Ordered. EDMS 12:51 Wound Culture & GS - Most Extremities Ordered. EDMS 12:52 Clindamycin 900 mg IVPB once over 30 mins; dilute in 50mL of NS or D5W ordered. mo1 12:57 BLOOD CULTURES Ordered. EDMS 13:10 -Blood Culture (Adults Only), peripheral from different site, or from device/port/PICC ar3 etc. if present complete. 14:31 CRP Reviewed. mo1 14:31 BMP Reviewed. mo1 14:32 CBC with Diff Reviewed. mo1 22:10 T-Sheet-- Draft Copy was scanned into [employer] and attached to record. klr Administered Medications: 13:24 Drug: Clindamycin 900 mg Route: IVPB; Infused Over: 30 mins; Site: left antecubital; jmk 14:21 Follow up: IV Status: Completed infusion k 15:19 Drug: Lidocaine 10 ml [lidocaine 20 mg/mL (2 %) injection solution (10 mL)] {Note: by lizzie LIN.} Route: Infiltration; Signatures: Dispatcher [employer] EDLit Simons RN RN jmk Scott, Debra, RN RN dls Robie, Kathleen, RN RN kr3 Rabon, Alicia, TRUCK BENCH MECHANIC TRUCK BENCH MECHANIC ar3 Mauro Fernandez PA PA moAngie Paris kljewels The chart was reviewed and I authenticate all verbal orders and agree with the evaluation and treatment provided.Attachments: 22:10 T-Sheet-- Draft Copy klr Chart Complete MTDD
--- NOTE | 2016-03-20 17:52 | EDDOCDS ---
Nurse's Notes [facility] Name: Erasto Birch Age: 20 yrs Sex: Male : 1995 Arrival Date: 03/18/2016 Time: 10:59 Bed I4 / M4 Private [facility] Diagnosis: Cutaneous abscess of right upper limb;Cellulitis of right upper limb Presentation: 03/18 11:07 Presenting complaint: Patient states: Pt presents with redness swelling and yellow dls drainage right forearm pt is unsure if he got bit by something. Compartment Syndrome Evaluation: No compartment is involved. There are no signs of compartment syndrome. Adult Sepsis Screening: The patient does not have new or worsening altered mentation. Patient's respiratory rate is less than 22. Systolic blood pressure is greater than 100. Patient has a qSOFA score of 0- Negative Sepsis Screen. Suicide/Homicide risk assessment- the patient denies having any suicidal and/or homicidal ideations and does not present with any other emotional, behavioral or mental health complaints. 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 Transition of care: patient was not received from another setting of care. 11:07 Acuity: MARIN Level 3 dls 11:07 Method Of Arrival: Walkin/Carried/Asstd dls Triage Assessment: 11:09 General: Appears in no apparent distress, slender, well developed, well nourished, well dls groomed, Behavior is cooperative. Pain: Pain currently is 4 out of 10 on a pain scale. HIV screening NA for this visit Offered previously. 15:25 Bite Description: Bite sustained to dorsal aspect of right forearm by an unknown kr3 animal, Animal Information: Vaccine status: is not applicable. Historical: - Allergies: no known allergies; - Home Meds: 1. none - PMHx: none; - PSHx: none; - Immunization history:: Last tetanus immunization: up to date. - Family history: Not pertinent. - Social history: Smoking status: Patient/guardian denies using No barriers to communication noted, The patient speaks fluent [place]. - : The pt / caregiver states he / she is not on anticoagulants. Home medication list is obtained from the patient. - Exposure Risk Screening:: None identified. Screenin:25 Screening information is obtained from the patient. Fall risk: No risks identified. dukek Assistance ADL's: requires no assistance with activities of daily living. Abuse/DV Screen: The patient / caregiver reports he/she is: not in a situation that causes fear, pain or injury. Nutritional screening: No deficits noted. Advance Directives: Currently, there is no health care proxy. There is no active DNR order. There is no living will. There is no Power of Aeroplane Pilot. Advance directive information has not previously been placed in an [facility] medical record. home support is adequate. Assessment: 13:25 General: Appears in no apparent distress, NAD very casual presentation. right arm with jmk 4" area of redness distal to antecubital space. pea size area of crusty drainage. red streak x 2 extends to axillae.. Derm: Skin see note. 15:24 Reassessment: Patient appears in no apparent distress at this time. Pain: Location: kr3 right forearm Pain currently is 1 out of 10 on a pain scale. Neurological: Level of Consciousness is awake, alert. Respiratory: Respiratory effort is even, unlabored. Vital Signs: 11:01 BP 115 / 70; Pulse 84; Resp 18 S; Temp 98.0(O); Pulse Ox 98% on R/A; Weight 61.23 kg dd6 (R); Height 5 ft. 6 in. (167.64 cm) (R); 15:23 BP 114 / 68; Pulse 73; Resp 16; Temp 97.8(O); Pulse Ox 98% on R/A; Pain 1/10; kr3 11:01 Body Mass Index 21.79 (61.23 kg, 167.64 cm) dd6 Vitals: 11:01 Log In Time: March 18, 2016 at 11:00. dd6 ED Course: 11:00 Patient visited by Darrion Kruse PCA. dd6 11:00 Patient moved to Waiting dd6 11:01 [facility], Hussein Bourgeois is Private Physician. dd6 11:02 Patient moved to Pre RCE dd6 11:08 Triage Initiated dls 12:22 Patient moved to Triage 2 ar3 12:30 Mauro Fernandez PA is PHCP. mo1 12:30 Yoni Saunders MD is Attending Physician. mo1 12:51 Patient visited by Mauro Fernandez PA. mo1 12:52 Patient moved to I4 / M4 ar3 12:52 Wound Culture & GS - Most Extremities Sent. ar3 13:25 The patient / caregiver is instructed regarding the plan of care and ED course. jmk 13:25 Inserted saline lock: 20 gauge in left antecubital area. jmk 13:31 Patient visited by Lit Guerra,NILES. jmk 15:15 [facility], Hussein Bourgeois is Referral Physician. mo1 15:25 Discontinued lock intact, bleeding controlled, pressure dressing applied, No kr3 redness/swelling at site. No procedures done that require assistance. 22:10 T-Sheet-- Draft Copy was scanned into [employer] and attached to record. klr Administered Medications: 13:24 Drug: Clindamycin 900 mg Route: IVPB; Infused Over: 30 mins; Site: left antecubital; dukek 14:21 Follow up: IV Status: Completed infusion jmk 15:19 Drug: Lidocaine 10 ml [lidocaine 20 mg/mL (2 %) injection solution (10 mL)] {Note: by lizzie WELLS} Route: Infiltration; Order Results: Lab Order: CBC with Diff; SPEC'M 03/18/16 13:10 Test: WHITE BLOOD COUNT; Value: 12.4; Range: 4.0-10.0; Abnormal: Above high normal; Units: K/mm3; Status: F Test: RED BLOOD COUNT; Value: 5.94; Range: 4.30-6.10; Units: M/mm3; Status: F Test: HEMOGLOBIN; Value: 15.6; Range: 14.0-18.0; Units: g/dl; Status: F Test: HEMATOCRIT; Value: 46.2; Range: 42.0-52.0; Units: %; Status: F Test: MEAN CORPUSCULAR VOLUME; Value: 77.8; Range: 80.0-96.0; Abnormal: Below low normal; Units: fl; Status: F Test: MEAN CORPUSCULAR HEMOGLOBIN; Value: 26.2; Range: 27.0-33.0; Abnormal: Below low normal; Units: pg; Status: F Test: MEAN CORPUSCULAR HGB CONC; Value: 33.7; Range: 32.0-36.5; Units: g/dl; Status: F Test: RED CELL DISTRIBUTION WIDTH; Value: 13.7; Range: 11.5-14.5; Units: %; Status: F Test: PLATELET COUNT, AUTOMATED; Value: 263; Range: 150-450; Units: k/mm3; Status: F Test: NEUTROPHILS %; Value: 75.4; Range: 36.0-66.0; Abnormal: Above high normal; Units: %; Status: F Test: LYMPH %; Value: 17.0; Range: 24.0-44.0; Abnormal: Below low normal; Units: %; Status: F Test: MONO %; Value: 4.0; Range: 0.0-5.0; Units: %; Status: F Test: EOS %; Value: 0.8; Range: 0.0-3.0; Units: %; Status: F Test: BASO %; Value: 1.4; Range: 0.0-1.0; Abnormal: Above high normal; Units: %; Status: F Test: LARGE UNSTAINED CELL %; Value: 1.4; Range: 0.0-4.0; Units: %; Status: F Test: NEUTROPHILS #; Value: 9.4; Range: 1.8-7.7; Abnormal: Above high normal; Units: K/mm3; Status: F Test: LYMPH #; Value: 2.3; Range: 1.5-6.5; Units: K/mm3; Status: F Test: MONO #; Value: 0.5; Range: 0.0-0.8; Units: K/mm3; Status: F Test: EOS #; Value: 0.1; Range: 0.0-0.50; Units: K/mm3; Status: F Test: BASO #; Value: 0.2; Range: 0.0-0.2; Units: K/mm3; Status: F Test: LARGE UNSTAINED CELL #; Value: 0.2; Range: 0.0-0.4; Units: K/mm3; Status: F Lab Order: [facility]; SPEC'M 03/18/16 13:10 Test: GLUCOSE, FASTING; Value: 85; Range: 70-105; Units: MG/DL; Status: F Test: BLOOD UREA NITROGEN; Value: 11; Range: 7-18; Units: MG/DL; Status: F Test: CREATININE FOR GFR; Value: 0.90; Range: 0.70-1.30; Units: MG/DL; Status: F Test: GLOMERULAR FILTRATION RATE; Value: > 60.0; Range: >60; Status: F Test: SODIUM LEVEL; Value: 138; Range: 136-145; Units: MEQ/L; Status: F Test: POTASSIUM SERUM; Value: 4.1; Range: 3.5-5.1; Units: MEQ/L; Status: F Test: CHLORIDE LEVEL; Value: 101; Range: 98-107; Units: MEQ/L; Status: F Test: CARBON DIOXIDE LEVEL; Value: 30; Range: 21-32; Units: MEQ/L; Status: F Test: ANION GAP; Value: 7; Range: 8-16; Abnormal: Below low normal; Units: MEQ/L; Status: F Test: CALCIUM LEVEL; Value: 9.3; Range: 8.5-10.1; Units: MG/DL; Status: F Test Note: ; Units are mL/min/1.73 m2 Chronic Kidney Disease Staging per NKF: Stage I & II GFR >=60 Normal to Mildly Decreased Stage III GFR 30-59 Moderately Decreased Stage IV GFR 15-29 Severely Decreased Stage V GFR <15 Very Little GFR Left ESRD GFR <15 on BROADCAST ENGINEER Lab Order: CRP; SPEC'M 03/18/16 13:10 Test: C REACTIVE PROTEIN QUANTITATIV; Value: 0.49; Range: 0.00-0.30; Abnormal: Above high normal; Units: MG/DL; Status: F Lab Order: -Blood Culture; SPEC'M 03/18/16 13:10 Test: BLOOD CULTURE; Value: No growth after 24 hours . All specimens observed; Status: F Test: BLOOD CULTURE; Value: for 5 days. Results final at that time.; Status: F Test: BLOOD CULTURE; Value: No Growth after 48 hours. All Specimens observed; Status: F Test: BLOOD CULTURE; Value: for 7 days. Results final at that time.; Status: F Lab Order: Wound Culture & GS - Most Extremities; SPEC'M 03/18/16 13:10 Test: GRAM STAIN; Value: GRAM STAIN RESULT; Status: F Test: GRAM STAIN; Value: NO CELLS SEEN; Status: F Test: GRAM STAIN; Value: NO ORGANISMS SEEN; Status: F Test: WOUND CULTURE; Value: <EXTERNAL COMMENT eCWMed> FULL REPORT IN LAB NOTES (eCW and Medent).; Status: F Test: WOUND CULTURE; Value: ORGANISM 1: STAPH.AUREUS METHICILLIN RESIS; Status: F Test: WOUND CULTURE; Value: STAPH.AUREUS METHICILLIN RESIS; Status: F Test: WOUND CULTURE; Value: QUANTITY OF GROWTH HEAVY; Status: F Test: WOUND CULTURE; Value: GRAM POS SENSI - VITEK 67; Status: F Test: WOUND CULTURE; Value: Method: VIT2; Status: F Test: WOUND CULTURE; Value: TETRACYCLINE <=1 S; Status: F Test: WOUND CULTURE; Value: PENICILLIN G >=0.5 R; Status: F Test: WOUND CULTURE; Value: TRIMETHOPRIM/SULFAMETHOXAZOLE <=10 S; Status: F Test: WOUND CULTURE; Value: ERYTHROMYCIN >=8 R; Status: F Test: WOUND CULTURE; Value: GENTAMICIN <=0.5 S; Status: F Test: WOUND CULTURE; Value: CLINDAMYCIN <=0.25 S; Status: F Test: WOUND CULTURE; Value: OXACILLIN >=4 R; Status: F Test: WOUND CULTURE; Value: VANCOMYCIN <=0.5 S; Status: F Test: WOUND CULTURE; Value: LINEZOLID (ZYVOX) 2 S; Status: F Lab Order: BLOOD CULTURES; SPEC'M 03/18/16 13:10 Test: BLOOD CULTURE; Value: No growth after 24 hours . All specimens observed; Status: F Test: BLOOD CULTURE; Value: for 5 days. Results final at that time.; Status: F Test: BLOOD CULTURE; Value: No Growth after 48 hours. All Specimens observed; Status: F Test: BLOOD CULTURE; Value: for 7 days. Results final at that time.; Status: F Outcome: 15:15 Discharge ordered by Provider. mo1 15:24 Discharge Assessment: patient administered narcotics - no. The following High Risk kr3 Discharge criteria are identified: None. Discharged to home ambulatory, with friend. Condition: stable. Discharge instructions given to patient, Instructed on discharge instructions, follow up and referral plans. medication usage, wound care, Demonstrated understanding of instructions, medications, Pt was receptive of discharge instructions/ teaching. Prescriptions given X 1. No special radiology studies were completed. Property sent home with patient. 15:26 Patient left the ED. kr3 Addendum: 03/20/2016 16:35 Narrative: Wound culture results reviewed by Dr Saunders and no changes made. mcp Signatures: Lit Guerra RN RN Heather Julian, RN Deb Cedeño mcp, RN RN dls Robie, Kathleen, RN RN kr3 Darrion Kruse, BOILER HELPER BOILER HELPER dd6 Meka Ambriz, BOILER HELPER BOILER HELPER ar3 Mauro Fernandez PA PA mo1 Angie Cook Chart Complete MTDD
--- NOTE | 2016-03-20 17:52 | EDDOCDS ---
Physician Documentation [facility] Name: Erasto Birch Age: 20 yrs Sex: Male : 1995 Arrival Date: 03/18/2016 Time: 10:59 Bed I4 / M4 [facility] Disposition: 03/18/16 15:15 Discharged to Home/Self Care. Impression: Cutaneous abscess of right upper limb, Cellulitis of right upper limb. - Condition is Stable. - Discharge Instructions: Abscess, Cellulitis, Incision and Drainage. - Prescriptions for Clindamycin HCl 300 mg Oral Capsule - take 1 capsule by ORAL route every 6 hours; 40 capsule. - Medication Reconciliation, Local Pharmacy Hours form. - [facility] up: [facility] [place]; When: Tomorrow; Reason: Recheck today's complaints, Continuance of care. - Problem is new. - Symptoms have improved. Historical: - Allergies: no known allergies; - Home Meds: 1. none - PMHx: none; - PSHx: none; - Immunization history:: Last tetanus immunization: up to date. - Family history: Not pertinent. - Social history: Smoking status: Patient/guardian denies using No barriers to communication noted, The patient speaks fluent Slovak. - : The pt / caregiver states he / she is not on anticoagulants. Home medication list is obtained from the patient. - Exposure Risk Screening:: None identified. Vital Signs: 03/18 11:01 BP 115 / 70; Pulse 84; Resp 18 S; Temp 98.0(O); Pulse Ox 98% on R/A; Weight 61.23 kg / dd6 134.99 lbs (R); Height 5 ft. 6 in. (167.64 cm) (R); 15:23 BP 114 / 68; Pulse 73; Resp 16; Temp 97.8(O); Pulse Ox 98% on R/A; Pain 1/10; kr3 11:01 Body Mass Index 21.79 (61.23 kg, 167.64 cm) dd6 MDM: 12:51 IV Saline Lock ordered. mo1 12:51 -Blood Culture (Adults Only), peripheral from different site, or from device/port/PICC mo1 etc. if present ordered. 12:51 Lidocaine 20 mg/mL (2 %) 10 ml Infiltration once; to bedside ordered. mo1 12:51 Dressing ordered. mo1 12:51 CBC with Diff Ordered. EDMS 12:51 BMP Ordered. EDMS 12:51 CRP Ordered. EDMS 12:51 -Blood Culture Ordered. EDMS 12:51 Wound Culture & GS - Most Extremities Ordered. EDMS 12:52 Clindamycin 900 mg IVPB once over 30 mins; dilute in 50mL of NS or D5W ordered. mo1 12:57 BLOOD CULTURES Ordered. EDMS 13:10 -Blood Culture (Adults Only), peripheral from different site, or from device/port/PICC ar3 etc. if present complete. 14:31 CRP Reviewed. mo1 14:31 BMP Reviewed. mo1 14:32 CBC with Diff Reviewed. mo1 22:10 T-Sheet-- Draft Copy was scanned into [employer] and attached to record. klr Administered Medications: 13:24 Drug: Clindamycin 900 mg Route: IVPB; Infused Over: 30 mins; Site: left antecubital; jmk 14:21 Follow up: IV Status: Completed infusion k 15:19 Drug: Lidocaine 10 ml [lidocaine 20 mg/mL (2 %) injection solution (10 mL)] {Note: by lizzie LIN.} Route: Infiltration; Signatures: Dispatcher [employer] EDLit Simons RN RN jmk Scott, Debra, RN RN dls Robie, Kathleen, RN RN kr3 Rabon, Alicia, MUSEUM HOST/HOSTESS MUSEUM HOST/HOSTESS ar3 Mauro Fernandez PA PA moAngie Paris kljewels The chart was reviewed and I authenticate all verbal orders and agree with the evaluation and treatment provided.Attachments: 22:10 T-Sheet-- Draft Copy klr Chart Complete MTDD
== END 2016-03-18 15:26 | disposition home or self-care (01) ==
LOC: M ED 10:59 → EEVIPCON 10:59 → M ED 15:26
DX: L03.123 Acute lymphangitis of right upper limb (principal); L03.113 Cellulitis of right upper limb; R21 Rash and other nonspecific skin eruption; B95.62 Methicillin resistant Staphylococcus aureus infection as the cause of diseases classified elsewhere

== ENCOUNTER 2016-11-28 13:10 | Inpatient (IN) | payer OTHER ==
[~2016-11-28] VITALS: Ht 167.6 cm; Wt 60.0 kg
[2016-11-28 16:21] LABS: MEAN CORPUSCULAR HEMOGLOBIN 25.9 pg (27.0-33.0); MEAN CORPUSCULAR HGB CONC 33.9 g/dl (32.0-36.5); MEAN CORPUSCULAR VOLUME 76.6 fl (80.0-96.0); WHITE BLOOD COUNT 6.3 10^3/uL (4.0-10.0)
[2016-11-28 16:58] LABS: ALBUMIN 4.2 GM/DL (3.2-5.2); ALBUMIN/GLOBULIN RATIO 1.27 (1.00-1.93); ALKALINE PHOSPHATASE 113 U/L (45-117); ALT/SGPT 14 U/L (12-78); ANION GAP 6 MEQ/L (8-16); AST/SGOT 9 U/L (15-37); BILIRUBIN,DIRECT 0.2 MG/DL (0.0-0.2); BILIRUBIN,TOTAL 0.7 MG/DL (0.2-1.0); BLOOD UREA NITROGEN 9 MG/DL (7-18); CALCIUM LEVEL 9.1 MG/DL (8.5-10.1); CARBON DIOXIDE LEVEL 28 MEQ/L (21-32); CHLORIDE LEVEL 106 MEQ/L (98-107); CREATININE FOR GFR 0.86 MG/DL (0.70-1.30); GLOMERULAR FILTRATION RATE > 60.0 (>60); GLUCOSE, FASTING 74 MG/DL (70-105); POTASSIUM SERUM 3.8 MEQ/L (3.5-5.1); SODIUM LEVEL 140 MEQ/L (136-145); TOTAL PROTEIN 7.5 GM/DL (6.4-8.2)
[2016-11-28 17:01] LABS: METHADONE URINE NEGATIVE (NEGATIVE)
[2016-11-28] MEDS ORDERED: MOM 30ML SUSPENSION UDC PO PRN (19:30)
[2016-11-28] MEDS ORDERED: ACETAMINOPHEN TAB 650MG DOSE (2X325MG) PO PRN (19:30)
[2016-11-28] MEDS ORDERED: traZODone 50 MG TAB PO PRN (19:30)
[2016-11-28] MEDS ORDERED: MAALOX 30 ML SUSP *UDC PO PRN (19:30)
[2016-11-28 21:40] VITALS: BP 110/71
[2016-11-29 06:52] VITALS: BP 107/59
--- NOTE | 2016-11-29 08:42 | HPEPDOC ---
[facility] Medical History & Physical Date of Admission Nov 28, 2016 History and Physical PCP: None ATTENDING: Dr. Michael Garcia HPI: 21yo[address] [facility] for unspecified depression, being medically examined today. No acute medical complaints today. Patient scratched his face with his nails 11/27/16. Patient denies pain, erythema, or drainage. Denies any fevers, chills, weakness, fatigue, CHOWDARY, CP, SOB, cough, palpitations, abdominal pain, N/V/D or changes in bowel or bladder habits. PMHx: Depression Anxiety Self-mutilation PSHX: Tongue laceration repair Right knee laceration repair SOCHX: Resides in: [facility] Marital Status: Kids: None Employment: Unemployed Tobacco use: Denies ETOH: Denies Illicit Drugs: Denies IV Drug Use: Denies Tattoos done unprofessionally: Denies FAMHX: Mother: Alive, diabetes Father: Alive, unknown Siblings: Alive, well Children: None Unexpected deaths due to medical reasons: None. ROS: As noted in HPI, otherwise 11pt ROS of systems reviewed and unremarkable. PE: GEN: 21 yo M, appears stated age. Well-nourished, well developed. No acute distress. Alert and oriented x 3. Pleasant, interactive. HEENT: Normocephalic, atraumatic. Pupils are equal, round, and reactive to light. Extraocular movements are intact. No nystagmus appreciated. Sclera are nonicteric. Conjunctiva without injection. Nose midline. Nasal turbinates without bogginess. EACs both patent BL. TMs both visualized and pimentel with good cone of light, no bulging or erythema. No facial asymmetry. Moist mucous membranes. Dentition fair. Pharynx pink and moist, no cobblestoning. Neck supple , trachea midline. No lymphadenopathy or thyromegaly appreciated. CHEST: Regular rate and rhythm, +S1, +S2 LUNGS: Clear to auscultation bilaterally. No wheezes, rales, or rhonchi. Breathing appears symmetric and easy. Patient is speaking in full sentences. No accessory muscle use. ABD: Round, soft, non-tender, non-distended. +Bowel sounds throughout. No rebound or guarding. No costovertebral angle tenderness. EXT: Pulses 2+ bilaterally dorsalis pedis and radial. No lower extremity edema appreciated. SKIN: [place], dry, warm. Superficial lacerations are noted to the facial areas bilaterally, mild erythema, no drainage or warmth noted. NEURO: Alert and oriented x 3. Cranial nerves III-XII are intact. No focal deficits appreciated. EKG: Pending A&P: [address]yo[address] [facility] for unspecified depression 1. Psych. Plan per Psychiatry. Obtain baseline EKG to assure the safety of psychiatric medications as they can prolong the QT interval. 2. Superficial lacerations to the face. Apply bacitracin twice a day as needed. 3. 4. Follow up. No Primary Care Provider. Will attempt to establish PCP on discharge. 5. Staff member Varinder present throughout exam. Vital Signs Vital Signs Date Time Temp Pulse Resp B/P (MAP) Pulse Ox O2 Delivery O2 Flow Rate FiO2 11/29/16 06:52 98.7 67 16 107/59 (75) 11/28/16 21:12 98 Room Air Laboratory Data Labs 24H Laboratory Tests 2 11/28/16 16:02: Nucleated Red Blood Cells % (auto) 0.0, Anion Gap 6L, Glomerular Filtration Rate > 60.0, Calcium Level 9.1, Aspartate Amino Transf (AST/SGOT) 9L, Alanine Aminotransferase (ALT/SGPT) 14, Alkaline Phosphatase 113, Total Bilirubin 0.7, Direct Bilirubin 0.2, Total Protein 7.5, Albumin 4.2, Albumin/Globulin Ratio 1.27, Thyroid Stimulating Hormone (TSH) 0.798, Salicylates Level < 1.7L, Urine Amphetamines Screen NEGATIVE, Urine Benzodiazepines Screen NEGATIVE, Urine Opiates Screen NEGATIVE, Urine Methadone Screen NEGATIVE, Acetaminophen Level < 2.0L, Urine Barbiturates Screen NEGATIVE, Urine Phencyclidine Screen NEGATIVE, Urine Cocaine Metabolite Screen NEGATIVE, Urine Cannabinoids Screen NEGATIVE, Ethyl Alcohol Level < 0.003 CBC/BMP Laboratory Tests 11/28/16 16:02 Red Blood Count 5.59, Mean Corpuscular Volume 76.6 L, Mean Corpuscular Hemoglobin 25.9 L, Mean Corpuscular Hemoglobin Concent 33.9, Red Cell Distribution Width 13.0 Home Medications No Active Prescriptions or Reported Meds Allergies Coded Allergies: No Known Allergies (Unverified , 11/28/16) Shannan Andrews Nov 29, 2016 08:42
[2016-11-29] MEDS ORDERED: BACITRACIN OINT 30GM TOP PRN (09:00)
--- NOTE | 2016-11-29 14:19 | MHHPEPDOC ---
[facility] History & Physical History and Physical DATE OF ADMISSION: Nov 28, 2016 at 19:14 LEGAL STATUS AT ADMISSION: 9:39 involuntary admission CHIEF COMPLAINT: . " I am trying to set up outpatient therapy" HISTORY OF THE PRESENT ILLNESS: Patient is a 21-year-old male with self reported history of untreated depression and anxiety at the patient was brought to the hospital after scratching himself in the face with multiple superficial abrasions on and reported that he pulled a knife in his throat threatening to hurt himself. Patient reported that he was doing "facetime" chat with several friends and they began bothering him Or "Bullying" Him. He Got Angry and Began Scratching His Face with His Nails and Pulled a Knife over his neck threatening to hurt himself. He denied that he meant to hurt himself. Patient Endorsed Depressed Mood, Denied Any Ideas to Hurt Himself or Others. He Thinks That He Will Benefit from Outpatient Psychotherapy. He Endorsed As Depressive Symptoms, Depressed Mood, Low Energy Most of the Time. Patient Denies Any Alcohol or any other illicit drug use, but as reported he has history of substance use in the past. He Currently Lives with His 28 Years Old That Is Handicapped As She Had a Leg Amputation Due To Severe Diabetes. Patient Is Currently Unemployed. He Was Discharged from the in August 2016 . PSYCHIATRIC REVIEW OF SYSTEMS: Affective: . Endorsed depressed mood, low energy Anxiety: . Reports anxiety at times Trauma: . Denies Psychosis: . No psychosis Personally: . None PAST PSYCHIATRIC HISTORY: Prior Psychiatric Disorder: . Reported had mental health treatment while in the but only psychotherapy. No history of psychiatric admissions. No history of self-harm behaviors. Outpatient Treatment: . none Suicidal/Self injurious: . Denied Psychotropic Medication History: . None ALLERGIES: Please see below. FAMILY PSYCHIATRIC HISTORY: . Denied SOCIAL HISTORY: Patient is from [place], [place], came to this area 4 years ago while in the . He is stating the area after discharge from the , as his is from this area. He completed high school and was 4 years in the at [employer]. His currently unemployed and takes care of his and his dogs at home SUBSTANCE ABUSE HISTORY: . Denied any current substance abuse was reported was using in the past all. unknown substance PAST MEDICAL/SURGICAL HISTORY: 1. .none 2. . VITAL SIGNS: Temperature , pulse , respiratory rate , blood pressure , pulse oximetry % on room air. MENTAL STATUS EXAMINATION: General appearance: Patient is a 21 years old male with multiple abrasions in his face looks stated age with fair grooming and hygiene, good eye contact and cooperative Speech: . Fluent and coherent Thought processes: . Linear and goal directed Thought content: . Denied suicidal or homicidal ideas. No delusions elicited. No perceptual disturbances Abstract reasoning and computation: . Adequate Description of associations: . No abnormalities Description of abnormal or psychotic thoughts: . No symptoms of psychosis Judgment: . Limited Insight: . Poor Orientation: ." Oriented 3 Recent and remote memory: . Intact Attention span and concentration: . Appropriate Fund of knowledge: . Average Mood: "Down." Affect: . Constricted DIAGNOSES: 1. . Depressive disorder NOS, rule out major depressive disorder, single episode 2. . 3. . ASSESSMENT: Patient is a 21 years old male that was admitted after making self harm statements on worsening symptoms of depression. Patient reported that he only wants outpatient psychotherapy. However, he will benefit from antidepressant medication will be started in citalopram 20 mg daily. Patient will need outpatient psychiatric treatment focusing on psychotherapy PROBLEM LIST: 1. . Depressive symptoms 2. . 3. . INITIAL TREATMENT PLAN: 1. Patient was admitted on an involuntary legal status 2. Complete history was obtained. 3. With patients permission, family will be contacted and database will be expanded. 4. Patients medication regimen will be reviewed and changed accordingly. 5. Patient will be provided with protected environment. 6. Patient will be treated with individual, group, and milieu therapies. 7. Patient will receive supportive psych-education. 8. Discharge planning will commence immediately. 9. Outpatient follow-up treatment will be strongly recommended. 10. The initial treatment plan will focus initially on: * Depression. * self harm behaviors ESTIMATED LENGTH OF STAY: 3-5 days. TIME SPENT COUNSELING AND COORDINATING INITIAL CARE: 50 minutes. Laboratory Data 24H Labs Laboratory Tests 2 11/28/16 16:02: Nucleated Red Blood Cells % (auto) 0.0, Anion Gap 6L, Glomerular Filtration Rate > 60.0, Calcium Level 9.1, Aspartate Amino Transf (AST/SGOT) 9L, Alanine Aminotransferase (ALT/SGPT) 14, Alkaline Phosphatase 113, Total Bilirubin 0.7, Direct Bilirubin 0.2, Total Protein 7.5, Albumin 4.2, Albumin/Globulin Ratio 1.27, Thyroid Stimulating Hormone (TSH) 0.798, Salicylates Level < 1.7L, Urine Amphetamines Screen NEGATIVE, Urine Benzodiazepines Screen NEGATIVE, Urine Opiates Screen NEGATIVE, Urine Methadone Screen NEGATIVE, Acetaminophen Level < 2.0L, Urine Barbiturates Screen NEGATIVE, Urine Phencyclidine Screen NEGATIVE, Urine Cocaine Metabolite Screen NEGATIVE, Urine Cannabinoids Screen NEGATIVE, Ethyl Alcohol Level < 0.003 CBC/BMP Laboratory Tests 11/28/16 16:02 Red Blood Count 5.59, Mean Corpuscular Volume 76.6 L, Mean Corpuscular Hemoglobin 25.9 L, Mean Corpuscular Hemoglobin Concent 33.9, Red Cell Distribution Width 13.0 Medications No Active Prescriptions or Reported Meds Allergies Coded Allergies: No Known Allergies (Unverified , 11/28/16) RASHAD MANCILLA MD Nov 29, 2016 14:19
--- NOTE | 2016-11-29 15:10 | ECGEPIP ---
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
[2016-11-29] MEDS: CitaloPRAM (CeleXA) 20 MG TAB PO SCH (16:08)
[2016-11-29 18:00] VITALS: BP 98/57
[2016-11-30 06:51] VITALS: BP 143/64
[2016-11-30] MEDS: CitaloPRAM (CeleXA) 20 MG TAB PO SCH (09:06)
[2016-11-30 18:00] VITALS: BP 105/57
--- NOTE | 2016-11-30 21:51 | MHIPN ---
DATE: 11/30/2016 SUBJECTIVE: The patient states "I'm pretty good." He feels that the current medication has "helped me calm down." He says he slept good. He has no complaints. MENTAL STATUS EXAMINATION: He is alert and oriented times three. Eye contact is fairly good. Psychomotor activity is normal. There is no formal thought disorder noted. He is verbally spontaneous. He says his mood is good. His affect is full range and appropriate. He is not psychotic, suicidal, or homicidal. Concentration is fair. Memory intact. Insight and judgment fair. DIAGNOSIS: Other specified depressive disorder. TREATMENT PLAN: At this point, we will continue to monitor the patient for continued stabilization of mood and continued resolution of any suicidal ideation, and we will continue to titrate the medication as indicated.
[2016-12-01 06:47] VITALS: BP 114/63
[2016-12-01] MEDS: CitaloPRAM (CeleXA) 20 MG TAB PO SCH (07:56)
[2016-12-01 18:00] VITALS: BP 126/62
--- NOTE | 2016-12-01 19:24 | MHIPN ---
DATE: 12/01/2016 SUBJECTIVE: The patient today states, "I'm feeling pretty good." He has no complaints. He says that he slept good. He says that he got a letter from his , and that is helping him to be in a very good mood today. MENTAL STATUS EXAMINATION: He is alert and oriented times three. Eye contact is fairly good. Psychomotor activity is normal. He is verbally spontaneous. There is no formal thought disorder. His mood is good. Affect full range and appropriate. He is not psychotic, suicidal, or homicidal. Concentration fair. Memory intact. Insight and judgment are fair. DIAGNOSIS: Other specified depressive disorder. TREATMENT PLAN: At this point, we will further observe and evaluate this patient for continued resolution of depressive symptomatology and continued resolution of suicidal ideations, and we will continue to titrate his medication as indicated.
[2016-12-02 06:44] VITALS: BP 100/51
[2016-12-02] MEDS: CitaloPRAM (CeleXA) 20 MG TAB PO SCH (08:07)
[2016-12-02 18:00] VITALS: BP 125/70
--- NOTE | 2016-12-02 19:20 | IPN ---
DATE: 12/02/2016 HISTORY: 21-year-old male with history of untreated depression and anxiety admitted to our unit after he scratched himself in the face and pulled a knife to his throat. The patient reported that some friends were bullying him. He got angry, started scratching his face and pulled a knife. The patient denies any history of substance abuse. The patient reports that he lives with his 28-year-old who is disabled. MEDICATIONS: - Celexa 20 mg by mouth daily - trazodone 50 mg by mouth at bedtime as needed for insomnia SUBJECTIVE: "I am feeling better". OBJECTIVE: The patient is improving slowly. He is less depressed. He is interacting better with others patients and staff. He is denying side effects from the medication. The patient does no have psychomotor retardation. The patient is able to sleep better. MENTAL STATUS EXAM: The patient dressed in [facility]. The patient is clean and well groomed. The patient is cooperative during the interview. Has fair eye contact. Speech is normal in rate, volume, articulation, is quite spontaneous. Mood is depressed and anxious, but improving. Affect is somewhat restricted. No delusions or hallucinations. Memory is fair. The patient is fully oriented. Associations are intact. Thinking is logical. Thought content is appropriate. The patient is able to contract for safety during the interview and denies suicidal or homicidal ideation. Insight and judgment is fair. ASSESSMENT: 1. Depression. 2. Suicidal ideation. PLAN: 1. Continue with Celexa 20 mg by mouth daily. 2. Continue with trazodone 50 mg by mouth at bedtime as needed for insomnia.
[2016-12-03 06:53] VITALS: BP 90/50
[2016-12-03] MEDS: CitaloPRAM (CeleXA) 20 MG TAB PO SCH (08:06)
[2016-12-03] MEDS ORDERED: CELE20TA PO (09:57)
--- NOTE | 2016-12-03 17:51 | MHDS ---
DATE OF ADMISSION: 11/28/2016 DATE OF DISCHARGE: 12/03/2016 LEGAL STATUS AT ADMISSION: 9.39 legal status. HISTORY OF PRESENT ILLNESS: The following information is according to the initial evaluation of Dr. Maciel, his progress note and my own progress note. On admission, Dr. Maciel wrote the patient is a 21-year-old male with self-reported history of untreated depression and anxiety. The patient was brought to the hospital after scratching himself in the face multiple times and reported that he pulled a knife on his throat threatening to harm himself. The patient reported that he was doing "FaceTime" chat with several friends and they began bothering him and bullying him. He got angry and began scratching his face with his nails and pulled a knife over his neck threatening to hurt himself. He denied that he meant to hurt himself to Dr. Maciel. The patient endorsed a depressed mood, denied ideas to hurt himself or others. He thinks that he will benefit from outpatient psychotherapy. He endorsed as depressive symptoms, a depressed mood, low energy most of the time. The patient denied any alcohol or use of any illicit drugs. He stated that he has a history of substance use in the past. He currently lives with 28-year-old who is handicapped. She had a leg amputation due to severe diabetes. The patient is currently unemployed. He was discharged from the in August of 2016. LABORATORY DATA ON ADMISSION: His CBC was within normal limits except MCV of 76.6 and MCH of 25.9. CMP was within normal limits. TSH within normal limits. Urine drug screen was negative. Blood alcohol level was negative. HOSPITAL COURSE: After the first evaluation, Dr. Maciel started him on Celexa 20 mg by mouth every morning and trazodone as needed for insomnia but he did not need this last medication. He tolerated the medication well. He improved slowly but steadily. By the end of the hospitalization, his mood is euthymic. The patient is denying suicidal thoughts. The patient is denying symptoms of depression. He would like to continue his treatment in outpatient setting and is willing to followup appointment and recommendations. There is no evidence of psychotic symptoms. No auditory or visual hallucinations or delusions. MENTAL STATUS EXAMINATION AT DISCHARGE: The patient is dressed in [facility]. The patient is calm and cooperative. His speech is clear, coherent with normal rate and is spontaneous. The patient has good eye contact. Mood is euthymic. Affect is appropriate and congruent with mood. The patient is oriented to time, place, person and situation. He maintains attention and concentration correctly. Instant recall, recent and remote memory are intact. Thought processes are coherent, logical and goal-directed. The patient does not have auditory or visual hallucinations. The patient does not have paranoid, persecutory, somatic, grandiose or mandaen delusions. The patient is denying suicidal or homicidal ideation. Insight and judgment are fair. DISCHARGE MEDICATIONS: Celexa 20 mg by mouth every morning. DISCHARGE DIAGNOSES: AXIS I: Adjustment disorder with depressed mood. AXIS II: Deferred. AXIS III: Nonacute. CONDITION AT DISCHARGE: Stable. No suicidal or homicidal ideation. No auditory or visual hallucinations. No delusions. INSTRUCTIONS TO THE PATIENT: The patient is to continue taking his medications as prescribed and followup appointments. He is advised to maintain absolute sobriety from drugs and alcohol. The patient has a scheduled appointment for medication management, individual psychotherapy, and primary care physician.
== END 2016-12-03 12:20 | disposition home or self-care (01) | DRG 754 ==
LOC: M ED 13:10 → M ED INP 19:14 → M PSY 21:35
PROVIDERS: ADMIT Psychiatry & Neurology Psychiatry; ATTEND Psychiatry & Neurology Psychiatry
DX: F43.21 Adjustment disorder with depressed mood (principal)

== ENCOUNTER 2017-01-26 18:45 | Emergency (ER) | payer OTHER ==
[~2017-01-26] VITALS: Ht 167.6 cm; Wt 61.4 kg
[2017-01-26 18:45] VITALS: BP 127/84
[~2017-01-26 18:45] MED LIST: CELE20TA PO
[2017-01-26] MEDS ORDERED: CitaloPRAM (CeleXA) 20 MG TAB PO ONE (19:30)
== END 2017-01-26 20:00 | disposition home or self-care (01) ==
LOC: M ED 18:45
DX: Z76.0 Encounter for issue of repeat prescription (principal); F41.9 Anxiety disorder, unspecified

== ENCOUNTER 2017-01-27 12:54 | Emergency (ER) | payer OTHER ==
[~2017-01-27] VITALS: Ht 167.6 cm; Wt 61.4 kg
[2017-01-27 14:03] LABS: MEAN CORPUSCULAR HEMOGLOBIN 26.5 pg (27.0-33.0); MEAN CORPUSCULAR HGB CONC 34.3 g/dl (32.0-36.5); MEAN CORPUSCULAR VOLUME 77.2 fl (80.0-96.0); PLATELET COUNT, AUTOMATED 283 10^3/uL (150-450); RED CELL DISTRIBUTION WIDTH 13.2 % (11.5-14.5); WHITE BLOOD COUNT 10.1 10^3/uL (4.0-10.0)
[2017-01-27 14:20] LABS: METHADONE URINE NEGATIVE (NEGATIVE)
[2017-01-27 14:35] LABS: ALBUMIN 4.6 GM/DL (3.2-5.2); ALBUMIN/GLOBULIN RATIO 1.39 (1.00-1.93); ALKALINE PHOSPHATASE 129 U/L (45-117); ALT/SGPT 21 U/L (12-78); ANION GAP 9 MEQ/L (8-16); AST/SGOT 14 U/L (7-37); BILIRUBIN,DIRECT 0.2 MG/DL (0.0-0.2); BILIRUBIN,TOTAL 0.9 MG/DL (0.2-1.0); BLOOD UREA NITROGEN 16 MG/DL (7-18); CALCIUM LEVEL 9.3 MG/DL (8.5-10.1); CARBON DIOXIDE LEVEL 25 MEQ/L (21-32); CHLORIDE LEVEL 106 MEQ/L (98-107); CREATININE FOR GFR 0.88 MG/DL (0.70-1.30); GLOMERULAR FILTRATION RATE > 60.0 (>60); GLUCOSE, FASTING 93 MG/DL (70-105); SODIUM LEVEL 140 MEQ/L (136-145); TOTAL PROTEIN 7.9 GM/DL (6.4-8.2)
[2017-01-27 15:18] VITALS: BP 144/75
== END 2017-01-27 15:21 | disposition home or self-care (01) ==
LOC: M ED 12:54
DX: F32.9 Major depressive disorder, single episode, unspecified (principal); R45.851 Suicidal ideations; Z79.899 Other long term (current) drug therapy